=== PATIENT | male | born 1975 | race Hispanic/Latino ===

== ENCOUNTER 2017-09-06 10:36 | Emergency (ER) | payer OTHER | END 2017-09-06 11:03 | disposition home or self-care (01) | LOC: EDH 10:36 | DX: S50.861A Insect bite (nonvenomous) of right forearm, initial encounter (principal); T78.49XA Other allergy, initial encounter; Z98.890 Other specified postprocedural states; W57.XXXA Bitten or stung by nonvenomous insect and other nonvenomous arthropods, initial encounter; Y93.89 Activity, other specified; Y92.89 Other specified places as the place of occurrence of the external cause; Y99.8 Other external cause status ==